=== PATIENT | female | born 1995 | race Caucasian/White ===

== ENCOUNTER 2017-11-12 07:13 | Inpatient (IN) ==
[2017-11-12] MEDS ORDERED: ceFAZolin 2,000 MG in PREMIX 1 EACH IV ONE (07:19)
[2017-11-12] MEDS ORDERED: CITRIC ACID/SODIUM CITRATE 30 ML UDCUP PO ONE (07:19)
[2017-11-12] MEDS ORDERED: diphenhydrAMINE 50 MG/1 ML VIAL IV PRN (07:21)
[2017-11-12] MEDS ORDERED: OXYTOCIN/LR 20 UNIT/1,000 ML BAG IV ONE ×2 (07:21→09:01)
[2017-11-12] MEDS ORDERED: FAMOTIDINE 20 MG/2 ML VIAL IV ONE (07:21)
[2017-11-12] MEDS ORDERED: LACTATED RINGERS 1,000 ML IV ONE (07:21)
[2017-11-12] MEDS ORDERED: hydrOXYzine HCL 25 MG/1 ML VIAL IM PRN (07:21)
[2017-11-12] MEDS ORDERED: PROMETHAZINE 25 MG/1 ML VIAL IM PRN (07:21)
[2017-11-12] MEDS ORDERED: BUPIVACAINE SPINAL 0.75% 2 ML AMP SPINAL ONE (07:39)
[2017-11-12] MEDS ORDERED: ONDANSETRON 4 MG/2 ML VIAL ONE (07:39)
[2017-11-12] MEDS: LACTATED RINGERS 1,000 ML IV SCH ×2 (07:39→21:29)
[2017-11-12 07:48] LABS: Basophils % 0.3 % (0.0-0.8); Eosinophils # 0.1 10*3/uL (0.0-0.87); Eosinophils % 0.9 % (0.00-10.9); Hematocrit 30.3 VOL% (35.7-47.0); Hemoglobin 9.1 GM/DL (12.0-16.0); Immature Granulocytes % 1.5 %; Immature Granulocytes Absolute 0.23 #; Lymphocytes # 2.4 10*3/uL (1.4-4.0); Lymphocytes % 15.6 % (21.3-54.2); Mean Corpuscular Hemoglobin 26 PG (27-34); Mean Corpuscular Volume 86.3 FL (87-102); Mean Platelet Volume 12.1 FL (9.6-12.0); Monocytes # 1.1 10*3/uL (0.11-0.8); Monocytes % 7.2 % (1.7-12.7); NRBC # 0.04 10*3/uL; Neutrophils # 11.5 10*3/uL (1.4-7.4); Neutrophils % 74.5 % (38.7-73.9); Platelet Count 179 T/CUMM (130-400); Red Blood Count 3.51 MC/CUMM (3.8-5.5); Red Cell Distribution Width 16.7 % (9.3-17.3); White Blood Count 15.4 T/CUMM (4-12)
[2017-11-12 08:24] LABS: Albumin 2.4 G/DL (3.4-5.0); Bilirubin,Total 0.5 MG/DL (0.2-1.0); Calcium 8.8 MG/DL (8.5-10.1); Potassium 3.8 MMOL/L (3.5-5.1); Total Protein 6.5 G/DL (6.4-8.3)
[2017-11-12 08:28] LABS: Apearance,Urine CLEAR (Clear); Bilirubin,Urine Negative (Negative); Blood, Urine Negative (Negative); Glucose,Urine (UA) Negative (Negative); Ketones,Urine Negative (Negative); Mucus,Urine Occasional /LPF (Occasional); Nitrite,Urine Negative (Negative); Protein,Urine Negative; RBC,Urine 1 /HPF (0-4); Urine Color Straw (Yellow); Urine Specific Gravity 1.003 (1.001-1.035); Urine Urobilinogen < 2.0 EU/DL (0.2-1.0); WBC,Urine <1 /HPF (0-6)
[2017-11-12] MEDS ORDERED: MEASLES/MUMPS/RUBELLA VACCINE 0.5 ML VIAL SUBCUT ONE (09:01)
[2017-11-12] MEDS ORDERED: HYDROCORTISONE 2.5% RECTAL CREAM 30 GM TUBE TOP PRN (09:01)
[2017-11-12] MEDS ORDERED: WITCH HAZEL PADS 100/JAR TOP PRN (09:01)
[2017-11-12] MEDS ORDERED: RHO(D) IMMUNE GLOBULIN 300 MCG SYRINGE IM ONE (09:01)
[2017-11-12] MEDS ORDERED: DIPH/TET/ACEL PERT BOOSTER VACCINE 0.5 ML VIAL IM ONE (09:01)
[2017-11-12] MEDS ORDERED: oxyCODONE/ACETAMINOPHEN 5-325 MG TABLET PO PRN ×3 (09:01→22:56)
[2017-11-12] MEDS ORDERED: ONDANSETRON 4 MG/2 ML VIAL IV PRN (09:01)
[2017-11-12] MEDS ORDERED: BISACODYL 10 MG SUPP RECTAL PRN (09:01)
[2017-11-12] MEDS ORDERED: BENZOCAINE 20%/MENTHOL 0.5% SPRAY 56 GM CAN TOP PRN (09:01)
[2017-11-12] MEDS ORDERED: ACETAMINOPHEN 325 MG TABLET PO PRN (09:01)
[2017-11-12] MEDS ORDERED: LANOLIN 50% CREAM 0.3 OZ TUBE TOP PRN (09:01)
[2017-11-12] MEDS ORDERED: fentaNYL 100 MCG/2 ML VIAL ONE (09:16)
[2017-11-12] MEDS ORDERED: PHENYLEPHRINE 1 MG/10 ML SYRINGE IV ONE (09:16)
[2017-11-12] MEDS ORDERED: MORPHINE 10 MG/10 ML VIAL ONE (09:17)
[2017-11-12 11:13] LABS: Barbiturates Screen,Urine Negative (Negative); Benzodiazepines Screen,Urine Negative (Negative); Cannabinoid Screen,Urine Negative (Negative); Opiate Screen,Urine Negative (Negative); Phencyclidine Screen,Urine Negative (Negative)
[2017-11-12] MEDS: HYDROmorphone 2 MG/1 ML VIAL IV PRN ×2 (12:31→19:20)
[2017-11-12] MEDS: ceFAZolin 1,000 MG in SYRINGE 1 EACH IV SCH ×2 (15:45→23:30)
[2017-11-12] MEDS ORDERED: SIMETHICONE CHEW 80 MG TABLET PO PRN (20:00)
[2017-11-12] MEDS ORDERED: MAGNESIUM HYDROXIDE SUSP 30 ML UDCUP PO PRN (20:01)
[2017-11-12] MEDS: DOCUSATE SODIUM 100 MG CAPSULE PO SCH (21:17)
[2017-11-13] MEDS: IBUPROFEN 800 MG TABLET PO PRN ×3 (02:11→19:54)
[2017-11-13] MEDS: oxyCODONE/ACETAMINOPHEN 5-325 MG TABLET PO PRN ×4 (02:12→19:55)
[2017-11-13] MEDS ORDERED: HydrOXYzine PAMOATE 25 MG CAPSULE PO PRN (03:25)
[2017-11-13 05:34] LABS: Basophils % 0.1 % (0.0-0.8); Eosinophils # 0.1 10*3/uL (0.0-0.87); Eosinophils % 0.9 % (0.00-10.9); Hematocrit 22.7 VOL% (35.7-47.0); Immature Granulocytes Absolute 0.14 #; Lymphocytes # 1.8 10*3/uL (1.4-4.0); Lymphocytes % 12.9 % (21.3-54.2); Mean Corpuscular HGB Conc 31.3 GM/DL (32-36); Mean Corpuscular Hemoglobin 26 PG (27-34); Mean Corpuscular Volume 82.8 FL (87-102); Mean Platelet Volume 12.2 FL (9.6-12.0); Monocytes # 1.2 10*3/uL (0.11-0.8); Monocytes % 8.4 % (1.7-12.7); NRBC # 0.02 10*3/uL; Neutrophils # 10.8 10*3/uL (1.4-7.4); Neutrophils % 76.7 % (38.7-73.9); Platelet Count 152 T/CUMM (130-400); Red Blood Count 2.74 MC/CUMM (3.8-5.5); Red Cell Distribution Width 16.8 % (9.3-17.3); White Blood Count 14.1 T/CUMM (4-12)
[2017-11-13 05:48] LABS: Hemoglobin 7.1 GM/DL (12.0-16.0)
[2017-11-13] MEDS ORDERED: ceFAZolin 1,000 MG in SYRINGE 1 EACH IV ONE (08:00)
[2017-11-13] MEDS: FLUoxetine 20 MG CAPSULE PO SCH (09:21)
[2017-11-13] MEDS: DOCUSATE SODIUM 100 MG CAPSULE PO SCH ×3 (09:21→23:17)
[2017-11-13] MEDS: FERROUS SULFATE 325 MG TABLET PO SCH ×3 (09:21→23:17)
[2017-11-14] MEDS: oxyCODONE/ACETAMINOPHEN 5-325 MG TABLET PO PRN ×3 (00:50→11:16)
[2017-11-14] MEDS: IBUPROFEN 800 MG TABLET PO PRN ×2 (02:00→11:15)
[2017-11-14 08:22] VITALS: BP 146/96
[2017-11-14] MEDS: FLUoxetine 20 MG CAPSULE PO SCH (09:47)
[2017-11-14] MEDS: FERROUS SULFATE 325 MG TABLET PO SCH (09:47)
[2017-11-14] MEDS: DOCUSATE SODIUM 100 MG CAPSULE PO SCH (09:47)
== END 2017-11-14 17:20 | disposition home or self-care (01) | DRG 540 ==
LOC: N.LDOUT 07:13 → N.LD 07:17 → N.OB 13:27
PROVIDERS: ADMIT Specialist; ATTEND Specialist
PROC: LDCSECT (ICD-10-PCS; 2017-11-12 08:00)